=== PATIENT | female | born 1970 | race Caucasian/White ===

== ENCOUNTER 2023-08-30 14:13 | Outpatient (REF) | payer OTHER, SELFPAY ==
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
== END 2023-08-30 14:14 | disposition home or self-care (01) ==
LOC: HO.XRAY 14:13
PROVIDERS: PCP Internal Medicine; Visit Provider Chiropractor
DX: M54.2 Cervicalgia (principal); M54.6 Pain in thoracic spine; M54.50 Low back pain, unspecified; M25.511 Pain in right shoulder
CPT/HCPCS: 72040; 72072; 72100; 73030

== ENCOUNTER 2024-10-09 15:49 | Outpatient (AMB) | payer OTHER, SELFPAY ==
--- NOTE | 2024-10-09 15:30 | A.OFFPC_ITS ---
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 She is not interested in GLP at this time as she fears this will slow down her already sluggish gut. She was started on a trial of phentermine. She did not lose any weight on the medication despite continuing her 1200kcal daily diet and continuing to exercise Reports difficulty swallowing intermittently. Feels in throat-she has a barium swallow and referral to ENT pending MSK: Joint and muscle pain Mammo:reports UTD Colonoscopy: reports UTD ROS see HPI PHYSICAL EXAM: Telehealth [facility] Family History Brother Substance abuse Mother HTN (hypertension) CLL (chronic lymphocytic leukemia) Father HTN (hypertension) Hypercholesteremia Diabetes Cardiovascular disease Thyroid disorder Breast cancer Social History Housing: House Alcohol intake: current Patient Tobacco Use Status: Former Tobacco user Tobacco use type: Cigarette (smoked in teenage years) Cigarette Packs Per Day: 1 Years Smoked: 2 Packs Per Year: 2 e-Cigarette/Vaping Use: Never Used Second Hand Smoke Exposure: No Use of substances other than those prescribed or required for medical reasons: No Substance Use Type: Former Substance User and Marijuana service: No Current occupational status: employed 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, 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 Current occupational exposures/hazards: No Cognitive needs: No Hearing needs: Yes (partially hard of hearing) Vision needs: No Questionnaire Thrive Questionnaire Date Thrive assessed: 08/28/24 I am a: Patient What is your living situation today?: I have a steady place to live Within the past 12 months, did the food you bought not last and you didn't have the money to get more?: Never true Within the past 12 months, did you worry whether your food would run out before you got money to buy more?: Never true Do you have trouble paying for medicines?: No Do you have trouble getting transportation to medical appointments?: No Do you have trouble paying your heating and electricity bill?: No Do you have trouble taking care of your child, family member or friend?: No Do you have trouble with day-to-day activities such as bathing, preparing meals, shopping, managing finances, etc.?: No Are you currently unemployed and looking for a job?: No Are you interested in more education?: No Please select the resources that you would like help with: None Currently or been in a relationship where the following occur: I choose not to answer THRIVE Score: 0 AUDIT C Alcohol Use Questionnaire (AUDIT-C) 1. How often do you have a drink containing alcohol?: Monthly or less 2. How many drinks containing alcohol do you have on a typical day when you are drinking?: 1 or 2 3. How often do you have six or more drinks on one occasion?: Never Total Score: 1 Physical exam (Primary Care) BMI result Body Mass Index 28.7 Tobacco/Smoking Status: Tobacco use Status Tobacco use date assessed 10/09/24 10/09/24 15:33 Patient Tobacco Use Status Former Tobacco user 10/09/24 15:33 Tobacco use type Cigarette (smoked in teenage 10/09/24 15:33 years) e-Cigarette/Vaping Use Never Used 10/09/24 15:33 Thrive Assessment: Date of Thrive Assessment Date Thrive assessed 08/28/24 10/09/24 15:33 Currently or been in a relationship where the following occur: I choose not to answer Telehealth Telehealth Telehealth Platform: Telephone Location of provider rendering services: practice address Patient Identification confirmed using: Name, : Yes Telehealth method: voice only Patient verbally consented to treatment: Yes Patient verbally consented to billing insurance company: Yes Patient informed of any privacy concerns related to visit: Yes Minutes spent on Phone/Video with Pt.: 22 Coding Level of Care Code Tele Est Pt Level 3 (75038) Diagnoses Weight gain R63.5 Hypothyroidism, unspecified type E03.9 Hypothyroidism type: unspecified Assessment & Plan Assessment & Plan (1) Weight gain: Code(s): R63.5 - Abnormal weight gain Category: Medical (2) Hypothyroid: Code(s): E03.9 - Hypothyroidism, unspecified Category: Medical Qualifiers: Hypothyroidism type: unspecified Qualified Code(s): E03.9 - Hypothyroidism, unspecified Plan Weight gain, hepatic steatosis. Has failed dietary and lifestyle changes. Failed phentermine. At this point she is willing to try GLP1 agonist if covered by insurance. This is ordered. She will follow up after 4th shot. Medications: New ondansetron HCl 4 mg PO Q8H 30 tabs 0RF Zepbound (tirzepatide (weight loss)) for 4 weeks 2.5 mg (0.5 mL) subcut QWEEK 2 mL 0RF NS E03.9 - Hypothyroidism, unspecified, E66.3 - Overweight, K76.0 - Fatty (change of) liver, not elsewhere classified Discontinued phentermine Discontinued Reason: Doctor's Order 37.5 mg PO DAILY 30 caps 3RF NS E66.3 - Overweight, R63.5 - Abnormal weight gain
[2024-10-09 15:52] VITALS: BMI 28.7
== END 2024-10-09 16:26 | disposition home or self-care (01) ==
LOC: HO.HMCFM 15:49
PROVIDERS: PCP Internal Medicine; Visit Provider Internal Medicine
DX: R63.5 Abnormal weight gain (principal); E03.9 Hypothyroidism, unspecified

== ENCOUNTER 2024-11-07 08:49 | Outpatient (REF) | payer OTHER, SELFPAY ==
--- NOTE | ~2024-11-07 | FL_ITS ---
EXAMINATION: XR BARIUM SWALLOW CLINICAL INFORMATION: Dysphagia COMPARISON: None available. TECHNIQUE: Routine barium swallow was performed in upright position with thick barium and saltine crackers. Patient was placed prone lying and thin barium was administered. FINDINGS: Following oral administration of thick barium in upright view there is of bolus from the oral cavity through the pharynx, esophagus into stomach without any evidence of obstruction, narrowing or stricture. Following oral administration of saltine crackers coated with barium there is normal oral mastication and propagation bolus from the oral cavity through the pharynx, esophagus. Thin barium was administered to changes of bolus from the mid esophagus to the distal esophagus. This could be secondary to diminished peristalsis. On oral administration of barium tablet there is spontaneous passage of tablet from the oral cavity, pharynx, esophagus into stomach. On placing patient prone lying and oral administration of thin barium there is normal antegrade flow through the esophagus with normal distention. No intrinsic or extrinsic obstructing lesions seen. Incidental finding of a small sliding hiatal hernia with mild gastroesophageal reflux. FLUOROSCOPY TIME: 2 minutes and 49 seconds DOSE AREA PRODUCT: 6 uGy-m2 (microgray-meter squared) FL/FL barium swallow IMPRESSION: Small sliding hiatal hernia with mild gastroesophageal reflux. Electronically signed by: Zi Cloud MD 11/07/2024 01:24 PM EDT
== END 2024-11-07 08:50 | disposition home or self-care (01) ==
LOC: HO.XRAY 08:49
PROVIDERS: PCP Internal Medicine; Visit Provider Internal Medicine
DX: R13.10 Dysphagia, unspecified (principal)
CPT/HCPCS: 74220

== ENCOUNTER → 2024-11-07 08:51 | Outpatient (BNV) | payer OTHER, SELFPAY | PROVIDERS: PCP Internal Medicine; Visit Provider Radiology Diagnostic Radiology | DX: K44.9 Diaphragmatic hernia without obstruction or gangrene (principal) | CPT/HCPCS: 74220 ==

== ENCOUNTER 2025-05-06 14:57 | Outpatient (AMB) | payer OTHER, SELFPAY ==
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
[2025-05-06 15:12] VITALS: BP 110/72; PULSE 94; RESP 14; TEMP 36.8; O2SAT 97; BMI 31.2
--- OUTSIDE RECORDS SUMMARY | 2025-05-06 18:12 | XMS_ITS ---
Author Name [facility] Organization Unknown Care Team Organization Name Specialty Phone Email Start Date End Da te [facility] Ada Orellana [facility] 06/14/2022 024
--- OUTSIDE RECORDS SUMMARY | 2025-05-06 18:12 | XMS_ITS | Continuity of Care Document ---
Author Organization [place] - [facility], [facility] Address [address] [place] [address] Care Team Providers Care Travel Service Consultant Name Role Phone AlbertCHIARA CHAIDEZ Referring Provider Assessment Encounter Date Assessment Date Assessment LastModified by Organization Details LastModified Time 03/27/2025 03/27/2025 54 year old female presents for reattempt of wax removal. Cerumen impaction was successfully removed from the left external auditory canal using instruments and suction which the patient tolerated well. Remainder of exam is unremarkable. Hearing has returned to baseline per her report, therefore audiometric testing was deferred. Recommend continued use of mineral oil twice weekly to help soften the wax. Follow up in 6 months for repeat debridement, sooner with any new or worsening concerns. All questions were answered. [email or web address] Not available 03/27/2025 16:30:06 Plan of Treatment Reminders Order Date Submit Date Provider Last Modified By Organization Details Last Modified Time Details Appointments None record ed. Lab None record ed. Referral None record ed. Procedures None record ed. Surgeries None record ed. Imaging None record ed. Medication Orders None record ed. Patient TargetsNo targets recorded. Patient InstructionsNo instructions recorded. Reason for Referral None Reported. Problems Name Problem SNOMED Code Status Onset Date Resolution Date Notes Provider Name and Address Organization Details Recorded Time Impacted cerumen in left ear 6295819029585 101 Active 2024 RAYMON NGUYỄN [address], [address] [facility] [place] - [facility] 5 12:42:05 Esophageal dysphagia 90865042 Active 2024 RAYMON NGUY[facility]N [facility], [place], [address], [facility] - [facility] 12:42:10 Sliding hiatus hernia 720668682 Active 2024 RAYMON NGUY[facility]N 100 [facility], [place], [address], [facility] 12:42:42 Gastroesoph ageal reflux disease without esophagitis 160841462 Active 2024 RAYMON NGUYỄN 100 [facility],[address], [place], [address], [facility] 12:42:51 Edgard thyroiditis 23025480 Active 2024 RAYMON NGUYỄN 100 [facility],[address], [place], [address], [facility] 12:59:05 Problem Notes None recorded. Procedures Surgical History Date Name Laterality Status Provider Name and Address Organization Details Recorded Time 5 Cerumen removal without microscope left completed RAYMON NGUYỄN 100 [facility],[address], [address], [facility] 03/27/2025 16:27:28 Cerumen removal without microscope right completed RAYMON NGUYỄN 100 [facility],[address], [address], [facility] 03/13/2025 13:00:32 FOL_DP completed RAYMON NGUYỄN 100 [facility],[address], [address], [facility] 03/13/2025 12:41:44 Imaging Results None recorded. Procedure Notes None recorded. Medical Equipment None Reported. Allergies Allergen ID Allergen Name Allergen Category Reaction Reaction Severity Criticality Documentation Date Start Date Code Code System Note Provider Name and Address Organization Details Recorded Time 614111 Product containin g penicilli n (product) medicatio n Not available Not available Not available 03/13/2025 73947 8001 SNOMED Kaylie velez [place] - [facility] 09:40:32 444300 wheat preparati on food,medi cation Not available Not available Not available 03/13/2025 00519 52 RxNorm Kaylie velez [place] - [facility] 09:40:37 Medications Name Sig Start Date Stop Date Status Note LastModified by Organization Details LastModified Time cyclobenzap rine 10 mg tablet TAKE 1 TABLET BY MOUTH THREE TIMES A DAY NEEDED FOR SPASM 03/13 completed Not Available Not Available Not Available levothyroxi ne 175 mcg tablet TAKE 1 TABLET BY MOUTH EVERY DAY active Not Available Not Available No t Available tretinoin 0.025 % topical cream Apply to Face nightly as tolerated 03/13 completed Not Available Not Available Not Available meloxicam 15 mg tablet TAKE 1 TABLET BY MOUTH EVERY DAY active Not Available Not Available No t Available prednisone 20 mg tablet TAKE 2 TABLETS BY MOUTH DAILY FOR 3 DAYS 03/13 completed Not Available Not Available Not Available meloxicam 7.5 mg tablet TAKE 1 OR 2 TABLETS DAILY NEEDED FOR MODERATE PAIN 03/13 completed Not Available Not Available Not Available levothyroxi ne 150 mcg tablet TAKE 1 TABLET BY MOUTH 6 DAYS A WEEK (NO TABS ON TUESDAY) 03/13 completed Not Available Not Available Not Available gabapentin 100 mg capsule TAKE 1 CAPSULE BY MOUTH 3 TIMES A DAY 03/13 completed Not Available Not Available Not Available fluocinonid e 0.05 % topical cream APPLY TOPICALLY TO AFFECTED AREA(S) TWICE DAILY FOR 7 DAYS THEN TRANSITIO N TO ZORYVE ONCE DAILY 03/13 completed Not Available Not Available Not Available doxycycline hyclate 100 mg tablet TAKE 1 TABLET (ORAL) 2 TIMES PER DAY FOR 10 DAYS LIMITS SUN EXPOSURE WHILE ON THIS ANTIBIOTI C 01/04 completed Not Available Not Available Not Available phentermine 37.5 mg capsule TAKE 1 CAPSULE BY MOUTH EVERY DAY 03/13 completed Not Available Not Available Not Available naproxen 500 mg tablet TAKE 1 TABLET BY MOUTH TWICE A DAY NEEDED FOR 90 DAYS 10/08 /2025 completed Not Available Not Available Not Available cyclobenzap rine 5 mg tablet TAKE 1/2-1 TABLET BY MOUTH EVERY DAY AT BEDTIME NEEDED FOR MUSCLE SPASM OR PAIN 03/13 completed Not Available Not Available Not Available pregabalin 75 mg capsule TAKE 1 CAPSULE BY MOUTH TWICE A DAY 03/13 completed Not Available Not Available Not Available Vitals Date Recorded Body height Body mass index (BMI) Body weight Provider Name and Address Organization Details Last Updated DateTime 03/27/2025 160.02 cm 29.2 kg/m2 91317.74 g Mer Avila [place] - [facility] 03/27/2025 16:07:01 Social History None recorded. Functional Status None recorded. Mental Status None recorded. Family History Nothing Reported. Medical History Condition Response Arthritis Y Migraines Y Anxiety Y Thyroid Problems Y Depression Y Gynecological HistoryNo gynecological history recorded. Obstetrics History GPAL:G 0 P 0 0 0 0 Past Encounters Encounter ID Performer Location Encounter Start Date Encounter Closed Date Diagnosis/Indication Diagnosis SNOMED-CT Code Diagnosis ICD10 Code Diagnosis IMO Codes Diagnosis Note [id number] RAYMON NGUYỄN [facility] of [address] [address] 03/13/2025 09:22:30 03/13/2025 10:20:31 Impacted cerumen in left ear [id number] 555076 H61.22 7003987 There is cerumen impaction completely obstructin g the left external auditory canal, which was partially removed using instrument s and suction. Unfortunat jaycee, I am unable to visualize the tympanic membranes on that side. Right ear is benign. Recommend a few drops of mineral oil into the left ear daily until follow up in 1-2 weeks for repeat debridemen t. Esophageal dysphagia 408 72769 R13.19 8211 Sliding hiatus hernia 23 1862471 K44.9 183387 Gastroesop hageal reflux disease without esophagitis 013388205 K21.9 648449 Edgard thyroiditis 21 935235 E06.3 31508 [place]. [id number] RAYMON NGUYỄN [facility] of [address] [address] 03/27/2025 15:44:31 03/27/2025 16:29:03 Impacted cerumen in left ear 3139289445 501789 H61.22 6062364 Health Concerns Section Related Observation LastModified by Organization Detai ls LastModified Time None Recorded Concern Status LastModified by Organization Details LastModified Time None Recorded Payers Encounter Date Sequence Insurance Name Policy Number Policy Mcclellan Covered Member ID Mcclellan Member ID Guarantor Name 03/27/2025 1 [facility] [employer] [place] ([id number]) [id number] Keyanna Christian [id number] Keyanna Christian Notes Date Note Type Note Provider Name and Address Organization Details Recorded Time 03/27/2025 text/html ROS as noted in the HPI 54 year old female presents for reattempt of wax removal. Patient has been using mineral oil as instructed at the previous. No acute concerns otherwise. RAYMON NGUYỄN [address] [place] [address],[place] [address], [place], [address], [facility] - [facility] 03/27/2025 16:30:55 OBGyn Episode No OBEpisode recorded.
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
--- OUTSIDE RECORDS SUMMARY | 2025-05-06 18:12 | XMS_ITS | Data Portability ---
Author Organization [place] - [facility], Allergy Address [address] [address] Care Team Providers Care Respiratory Clinician Name Role Phone MARIA ALEJANDRA FERREIRAAH Referring Provider Assessment Encounter Date Assessment Date Assessment LastModified by Organization Details LastModified Time 03/13/2025 03/13/2025 54 year old female, with a history of Edgard thyroiditis, presents for evaluation of dysphagia. Barium swallow performed 11/07/24 at [facility] revealed a small sliding hiatal hernia with [...] foods, and peppermint. All questions were answered. 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 Cerumen [...] or worsening concerns. All questions were answered. Not available 03/27/2025 16:30:06 Plan of Treatment Reminders Order Date Submit Date Provider Last Modified By Organization Details Last Modified Time Details Appointments None record ed. Lab None record ed. Referral gastro entero logist referr al - [place]07[place]24 [place] [facility] sl[place] hiatal hernia and mild GERD. Please evalua te. 2024 025 [facility], [address], [place], [address], 10:22:44 Procedures None record ed. Surgeries None record ed. Imaging None record ed. Medication Orders None record ed. Patient TargetsNo targets recorded. Patient InstructionsNo instructions recorded. 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 Please evaluate. Referring Physician: Ayesha Diallo, Otolaryngology, Encounter Date: 03/13/2025 Problems Name Problem SNOMED Code Status Onset Date Resolution Date Notes Provider Name and Address Organization Details Recorded Time Impacted cerumen in left ear 0678399227206 101 Active 2024 RAYMON NGUYỄN [address] [facility] [address], [place], [address], [place] - [facility] 5 12:42:05 Esophageal dysphagia 76666467 Active 2024 RAYMON NGUYỄN [address] [facility] [address], [place], [address], [place] - [facility] 5 12:42:10 Sliding hiatus hernia 537275475 Active 2024 RAYMON NGUYỄN 100 [facility], [address], [place], [address], [place] [facility] 5 12:42:42 Gastroesoph ageal reflux disease without esophagitis 829426554 Active 2024 RAYMON NGUYỄN 100 [facility],[place] [address], [place], [address], [facility] - [facility] 12:42:51 Edgard thyroiditis 88264940 Active 2024 RAYMON NGUYỄN 100 [facility],[place] [address], [place], [address], [facility] - [facility] 12:59:05 Problem Notes None recorded. Procedures Surgical History Date Name Laterality Status Provider Name and Address Organization Details Recorded Time Cerumen removal without microscope left completed RAYMON NGUYỄN 100 [facility],[address], [address], [facility] [place] [facility] 03/27/2025 16:27:28 Cerumen removal without microscope right completed RAYMON NGUYỄN [address] [place] [address],[address], [address], [facility] [place] [facility] 03/13/2025 13:00:32 FOL_DP completed RAYMON NGUYỄN [address] [place] [address], [address], [facility] [place] [facility] 03/13/2025 12:41:44 Imaging Results None recorded. Procedure Notes None recorded. Medical Equipment None Reported. Allergies Allergen ID Allergen Name Allergen Category Reaction Reaction Severity Criticality Documentation Date Start Date Code Code System Note Provider Name and Address Organization Details Recorded Time 117436 Product containin g penicilli n (product) medicatio n Not available Not available Not available 03/13/2025 97741 8001 SNOMED Kaylie velez [facility] 09:40:32 136260 wheat preparati on food,medi cation Not available Not available Not available 03/13/2025 93515 52 RxNorm Kaylie velez [facility] 09:40:37 Medications Name Sig Start Date [...] Updated DateTime 03/13/2025 160.02 cm 31.9 kg/m2 03853.63 g Kaylie Owens [place] - [facility] 03/13/2025 09:41:21 Date Recorded Body height Body mass index (BMI) Body weight Provider Name and Address Organization Details Last Updated DateTime 03/27/2025 160.02 cm 29.2 kg/m2 94409.74 g Mer Austin [place] - [facility] 03/27/2025 16:07:01 Social History None recorded. [...] ICD10 Code Diagnosis IMO Codes Diagnosis Note [id number] RAYMON NGUYỄN [facility] [address] [address] 03/13/2025 09:22:30 03/13/2025 10:20:31 Impacted cerumen in left ear 5405325925 713595 H61.22 5174206 There is cerumen impaction completely obstructin g the left external auditory canal, which was partially removed using instrument s and suction. Unfortunat jaycee, I am unable to visualize the tympanic membranes on that side. Right ear is benign. Recommend a few drops of mineral oil into the left ear daily until follow up in 1-2 weeks for repeat debridemen t. Esophageal dysphagia 408 29962 R13.19 8211 Sliding hiatus hernia 23 6327527 K44.9 146807 Gastroesop hageal reflux disease without esophagitis 057500705 K21.9 178588 Edgard thyroiditis 21 013047 E06.3 96011 Well-man[place]. [id number] RAYMON NGUYỄN [facility] [address] [address] 03/27/2025 15:44:31 03/27/2025 16:29:03 Impacted cerumen in left ear 4090367292 770942 H61.22 7419856 Health Concerns Section Related Observation LastModified by Organization Detai ls LastModified Time None Recorded Concern Status LastModified by Organization Details LastModified Time None Recorded Advance Directives Directive None Recorded Payers Insurance Date Sequence Insurance Name Policy Number Policy Mcclellan Covered Member ID Mcclellan Member ID Guarantor Name 03/24/2025 1 [facility] Proper Cloth [facility] ([id number]) [id number] Keyanna Christian [id number] 1 Keyanna Christian Notes Date Note Type [...] 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 RAYMON NGUYỄN 100 [facility],[address], [address], [place] - [facility] 03/13/2025 13:07:28 03/27/2025 text/html ROS as noted in the HPI 54 year old female presents for reattempt of wax removal. Patient has been using mineral oil as instructed at the previous. No acute concerns otherwise. RAYMON NGUYỄN 100 [facility],[address], [address], [place] - [facility] 03/27/2025 16:30:55 OBGyn Episode No OBEpisode recorded.
--- OUTSIDE RECORDS SUMMARY | 2025-05-06 18:12 | XMS_ITS | Clinical Summary ---
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 4 Active fluticasone propionate (FLONASE) 50 mcg/actuation nasal spray Administer 1 spray into each nostril 2 (two) times a day. 3 Active tapinarof (Vtama) 1 % cream 1 (one) time each day. TO AFFECTED AREA(S) 2 Active certolizumab pegol (Cimzia) 400 mg/2 mL (200 mg/mL x 2) syringe kit every 14 (fourteen) days. 3 Active levothyroxine (SYNTHROID, LEVOTHROID) 150 mcg tablet 1 tablet daily from Tuesday to Tuesday, 6 days a week 14 tablet 4 Active Additional Information Patient taking differently: See admin instructions, 1 tablet daily from Tuesday to Tuesday, 6 days a week, Reported on 05/24/2024 Active Problems Problem Noted Date Diagnosed Date Hypothyroidism 05/11/2024 Migraines 05/11/2024 Overweight (BMI 25.0-29.9) 12/19/2019 Gestational diabetes 01/17/2019 Overview (05/11/2024): History Psoriasis 01/17/2019 Encounters Date Type Department Care Team Description 03/18/2025 Telephone Gastroenterology - [place] [address] [facility] [address] [place] [address] Andreea Engle MD from Last 3 Months Immunizations Immunization Administration Dates Next Due Influenza trivalent, with preservative (Fluzone; Afluria) 6mo and older 04/21/2020,06/17/2018,04/14/2016,2013 Moderna SARS-CoV-2 COVID-19, mRNA, LNP-S, preservative free 10/04/2020 Td, Unspecified 10/29/2017 Surgical History Surgery Date Site/Laterality Comments SECTION PROCEDURE: HISTORICAL DELIVERY BACK SURGERY 2014 PROCEDURE: HISTORICAL BACK SURGERY; COMMENT: Lumbar Spine Medical History Medical History Date Comments Hypothyroidism DX:Hypothyroidis m Psoriasis 01/17/2019 DX:Psoriasis Migraines DX:Migraines Gestational diabetes 01/17/2019 DX:Gestatio nal diabetes; COMMENT: History Obesity 12/19/2019 DX:Obesity Family History Medical History Relation Name Comments Other: Hypothyroidism Brother 1 Bipolar disorder Brother 2 Breast cancer Father Prostate cancer Father DM, Hyperten romero, Hyperlipidemia, Hypothyroidism Hypertension Mother Other: Chronic Lymphocytic Leukemia Mother Hypothyroidism, Osteoporosis Relation Name Status Comments Brother 1 Alive migraines, back problems Brother 2 Alive migraines, back problems Brother 3 DM Father DM, any other u nknown Maternal Grandfather Maternal Grandmother Mother htn, uterine ca , back problems, migraines Paternal Grandfather Paternal Grandmother Son 1 Alive healthy Son 2 Alive healthy Son 3 Alive healthy Son 4 Alive healthy Social History Tobacco Use Types Packs/Day Years Used Date Smoking Tobacco: Former Cigarettes 0.5 23 0 06/06/1987 - 06/06/2010 Smokeless Tobacco: Never Alcohol Use Standard Drinks/Week Comments Yes 0 (1 standard drink = 0.6 oz pur e alcohol) Comments Unknown Sex and Gender Information Value Date Recorded Sex Assigned at Not on file Legal Sex Female 1:53 PM EST Gender Identity Not on file Sexual Orientation Not on file Obstetrics History Last Filed Vital Signs Vital Sign Reading Time Taken Comments Blood Pressure 118/84 07/15/2023 3:25 PM EST Pulse 82 07/15/2023 3:25 PM EST Temperature - - Respiratory Rate - - Oxygen Saturation - - Inhaled Oxygen Concentration - - Weight 82.6 kg (182 lb) 07/15/2023 3:25 PM EST Height 162.6 cm (5' 4 ) 07/15/2023 3:25 PM EST Body Mass Index 31.24 07/15/2023 3:25 PM EST Plan of Treatment Health Maintenance Due Date Last Done Comments Breast Cancer Screening 1970 Hepatitis B Vaccines (1 of 3 - 19+ 3-dose series) 1988 Cervical Cancer Screening: Pap Smear 01/02/2017 01/02/2014 Pneumococcal Vaccine: 50+ Years (1 of 1 - PCV) 10/03/2019 Zoster Vaccines (1 of 2) 10/03/2019 HIV Screening 05/15/2022 Social Influencers of Health Screening 05/15/2022 Depression Screening 06/06/2024 COVID-19 Vaccine ( season) 2025 11/01/2020, 10/04/2020, 10/03/2020 Influenza Vaccine (#1) 2025 , 06/17/2018, 04/14/2016, Additional history exists Cholesterol Screening (Lipid Panel) 01/29/2027 01/29/2022 Colorectal Cancer Screening: Colonoscopy 07/27/2027 07/27/2022 DTaP,Tdap,and Td Vaccines (2 - Td or Tdap) 10/30/2027 10/29/2017 RSV Immunization Adult Patients (1 - 1-dose 75+ series) 2044 Hepatitis C Screening Completed 01/29/2022 HIB Vaccines Aged Out No longer eligi ble based on patient's age to complete this topic HPV Vaccines Aged Out No longer eligi ble based on patient's age to complete this topic Hepatitis A Vaccines Aged Out No long er eligible based on patient's age to complete this topic IPV Vaccines Aged Out No longer eligi ble based on patient's age to complete this topic MMR Vaccines Aged Out No longer eligi ble based on patient's age to complete this topic Meningococcal ACWY Vaccine Aged Out N o longer eligible based on patient's age to complete this topic Meningococcal B Vaccine Aged Out No l onger eligible based on patient's age to complete this topic RSV Immunization Patients Under 20 months Aged Out No longer eligible based on patient's age to complete this topic Varicella Vaccines Aged Out No longer eligible based on patient's age to complete this topic Procedures Procedure Name Priority Date/Time Associated Diagnosis Comments COLONOSCOPY Routine 07/27/2022 HEPATITIS C SCREENING Routine 01/29/2022 LIPID PANEL Routine 01/29/2022 PAP SMEAR Routine 01/02/2014 from Last 3 Months or Most Recently Relevant to Health Maintenance Results * Colonoscopy (07/27/2022) Pathologist [facility] Colonoscopy no interpretation , abstracted Anatomical Region Laterality Modality Other [facility] Provider HEALTH MAINTENANCE Final Result * Hepatitis C Screening (01/29/2022) Pathologist [facility] Hepatitis C Screening no interpretation , abstracted [facility] Provider HEALTH MAINTENANCE Final Result * (ABNORMAL) Lipid panel (01/29/2022) [facility] LDL/HDL Ratio 3 0 - 4 Triglycerides 67 0 - 150 mg/dL Cholesterol 200 0 - 200 mg/dL HDL 62 >=40 mg/dL LDL Cholesterol 125(A) 0 - 100 mg/dL Blood Venous blood specimen / Unknown [facility] Provider LAB BLOOD ORDERABLES Sofia l Result * Pap Smear (01/02/2014) Pap smear no interpretation , abstracted [facility] Provider HEALTH MAINTENANCE Final Result from Last 3 Months or Most Recently Relevant to Health Maintenance Insurance [facility] [place] [address] [facility] Care Teams Sinter Press Operator Relationship Specialty Start Date End Date Benito Almendarez MD [address] [place] [address] PCP - General Internal Medicine 10/29/21
== END 2025-05-06 17:05 | disposition home or self-care (01) ==
LOC: HO.HMCFM 14:58
PROVIDERS: PCP Internal Medicine; Visit Provider Internal Medicine
DX: Z00.00 Encounter for general adult medical examination without abnormal findings (principal); E03.9 Hypothyroidism, unspecified; R63.5 Abnormal weight gain; K44.9 Diaphragmatic hernia without obstruction or gangrene

== ENCOUNTER → 2025-05-06 14:57 | Outpatient (BNVA) | payer OTHER, SELFPAY | PROVIDERS: PCP Internal Medicine; Visit Provider Internal Medicine | DX: Z00.00 Encounter for general adult medical examination without abnormal findings (principal); E03.9 Hypothyroidism, unspecified; R63.5 Abnormal weight gain; Z68.31 Body mass index [BMI] 31.0-31.9, adult; K44.9 Diaphragmatic hernia without obstruction or gangrene | CPT/HCPCS: 99396 ==